=== PATIENT | male | born 1950 | race Caucasian/White ===

== ENCOUNTER → 2019-01-17 | Day surgery (SDC) | payer OTHER ==
[~2019-01-17] MED LIST: ACETAMINOPHEN 325 MG TABLET PO PRN; ALBUTEROL SULFATE 2.5 MG/3 ML NEBU. NEB PRN; AMLO10TA8 PO; ASPI81TA50 PO; BISO5TAB4 PO; FAMO-63 PO; FINA5TAB4 PO; ISOS30TA4 PO; IV RINGERS SOLUTION,LACTATED 1,000 ML IV SCH; LIDOCAINE 2% 20 ML VIAL. ONE; LUBI24CA7 PO; MIDAZOLAM HCL PF 2 MG/2 ML VIAL. IV ONE; NIAC500T PO; ONDANSETRON PF 4 MG/2 ML VIAL. IV PRN; PROPOFOL 10,000 MCG/ML (20ML) VIAL IV ONE; PROPOFOL 20 ML IV ONE; PROPOFOL 60 ML IV ONE; SIMV40TA3 PO; SODIUM PHOSPHATES 19/7GM 133 ML ENEMA. ONE; SODIUM PHOSPHATES 19/7GM 133 ML ENEMA. PR ONE; TERA5CAP3 PO; WARF-78 PO; diphenhydrAMINE 50 MG/ML VIAL IV PRN
[2019-01-17 13:27] VITALS: BP 110/62
--- NOTE | 2019-01-21 16:06 | PATHOLOGY ---
[facility] Accession Number: [id number] . 01 Material submitted: . sigmoid colon - SIGMOID TRANSVERSE POLYPS. Modifiers: transverse . 01 Clinical history: . None provided . 02 Diagnosis: Colon biopsies, sigmoid and transverse colon polyps: - Tubular adenomas. ([facility] 01/21/2019) QTP/01/21/2019 . 02 Comment: There is no high-grade dysplasia or evidence of malignancy. ([facility] 01/21/2019) . 02 Electronically signed: . Eduard Elder MD, Pathologist NPI- [id number] . 01 Gross description: . Received in formalin labeled "Kasandra Alon, sigmoid transverse polyps," and additionally labeled on the requisition as "polyps," is a 1.0 x 0.6 x 0.5 cm polypoid piece of christy soft tissue. The margin is inked and the tissue is sectioned perpendicular to the margin and submitted entirely in cassette A1. Additionally received in the same container are multiple segments of christy soft tissue measuring 0.5 x 0.4 x 0.1 cm in aggregate dimension. The specimen is filtered and entirely submitted in cassette A2. ([facility]; 01/20/2019) TOB/TOB . 02 Pathologist provided ICD-10: D12.3, D12.5 . 02 CPT . 208287 Specimen Comment: A courtesy copy of this report has been sent to Specimen Comment: [phone], . Specimen Comment: Report sent to / DR QIU Performed at: [address], [place], [place] [id number] MD George Yoder MD Phone: [phone] Performed at: 02 [facility] [address] [place], [place] [id number] MD Eduard Elder MD Phone: [phone]
== END ==
LOC: SURG 08:37
PROVIDERS: ATTEND Internal Medicine Gastroenterology
DX: D12.3 Benign neoplasm of transverse colon (principal); D12.5 Benign neoplasm of sigmoid colon; K57.30 Diverticulosis of large intestine without perforation or abscess without bleeding; I10 Essential (primary) hypertension; N40.0 Benign prostatic hyperplasia without lower urinary tract symptoms; E11.9 Type 2 diabetes mellitus without complications; Z79.899 Other long term (current) drug therapy; Z79.84 Long term (current) use of oral hypoglycemic drugs
CPT/HCPCS: 45380; 45381; 45385; 82947; 88305; J2704; J7120; 43239; J2001